=== PATIENT | female | born 1950 | race Caucasian/White ===

== ENCOUNTER 2017-08-12 11:02 | Emergency (ER) | payer MEDICARE ==
[~2017-08-12] VITALS: Ht 162.6 cm; Wt 132.4 kg
[~2017-08-12 11:02] MED LIST: ALBU90OI INH; ATEN100; CITRACEL; CLON.2 PO; Cinnamon500 MG PO; Citalopram HBr40 MG PO; DILT300 PO; DULERA 100 MCG/13 GM INH; FERR325 PO; FURO40 PO; HYOS.125 SL; IBUP800 PO; LISI20 PO; METF500 PO; METO10 PO; OXYACE5T PO; PAROXETINE 20 MG; POTCHL20ER PO; PRAV20 PO; PROM25 PO; Pepcid20 MG PO; RANI150; RANI150 PO; RXHYOS.125 PO; SITA100T2 PO; Simvastatin20 MG PO; TAMS.4ER PO; VALSARTAN 160 MG; Zofran Odt8 MG PO
[2017-08-12] MEDS ORDERED: Omeprazole20 M1 (11:47)
[2017-08-12] MEDS ORDERED: Vitamin C100 M1 PO (11:51)
[2017-08-12] MEDS ORDERED: CYAN500 PO (11:51)
[2017-08-12] MEDS ORDERED: CHOL10002 PO (11:51)
[2017-08-12 12:08] LABS: Alanine Aminotransfer (ALT/SGP 25 U/L (12-78); Albumin, Blood 3.3 g/dL (3.4-5.0); Albumin/Globulin Ratio 0.8 (0.8-1.8); Alk Phos 88 U/L (50-136); Anion Gap 11 mmol/L (6-16); Aspartate Aminotrans (AST/SGOT 15 U/L (12-37); BASOPHILS ABSOLUTE AUTO 0.04 K/mm3 (0.00-0.23); BASOPHILS PERCENT AUTO 1 % (0-2); Bilirubin, Total 0.3 mg/dL (0.1-1.0); Blood Urea Nitrogen 17 mg/dL (8-24); Bun/Creatinine Ratio 26.1 (12.0-20.0); CO2, Blood 23 mmol/L (21-32); Calcium, Blood 9.2 mg/dL (8.5-10.1); Chloride, Blood 106 mmol/L (98-108); Creatinine, Blood 0.65 mg/dL (0.40-1.00); EOSINOPHILS ABSOLUTE AUTO 0.24 K/mm3 (0.00-0.68); EOSINOPHILS PERCENT AUTO 3 % (0-6); Globulin, Blood 3.9 g/dL (2.2-4.0); Glomerular Filtration Rate >60 (60-); Glucose, Blood 211 mg/dL (70-99); Hematocrit 41.6 % (33.0-51.0); Hemoglobin 12.6 g/dL (11.5-16.0); IMMATURE GRAN PERCENT AUTO 1 % (0-1); LYMPHOCYTES ABSOLUTE AUTO 1.41 K/mm3 (0.84-5.20); LYMPHOCYTES PERCENT AUTO 19 % (21-46); MONOCYTES ABSOLUTE AUTO 0.45 K/mm3 (0.16-1.47); MONOCYTES PERCENT AUTO 6 % (4-13); Mean Corpuscular HGB 24.6 pg (26.0-34.0); Mean Corpuscular HGB Conc 30.3 g/dL (31.5-36.5); Mean Corpuscular Volume 81 fL (80-100); Mean Platelet Volume 9.6 fL (9.1-12.4); NEUTROPHILS ABSOLUTE AUTO 5.17 K/mm3 (1.96-9.15); NEUTROPHILS PERCENT AUTO 70 % (41-73); Platelet Count 248 K/mm3 (150-400); Potassium, Blood 4.1 mmol/L (3.5-5.5); RDW Coefficient Variation 14.6 % (11.7-14.2); RDW Standard Deviation 43.4 fL (35.1-46.3); Red Blood Cell Count 5.12 M/mm3 (3.80-5.20); Sodium, Blood 140 mmol/L (136-145); Total Protein, Blood 7.2 g/dL (6.4-8.2); White Blood Cell Count 7.41 K/mm3 (4.00-11.30)
[2017-08-12 12:10] LABS: Troponin I <0.015 ng/mL (0.000-0.040)
== END 2017-08-12 13:21 | disposition home or self-care (01) ==
LOC: ER 11:02
PROVIDERS: Emergency Medicine
DX: M79.602 Pain in left arm (principal); I10 Essential (primary) hypertension; E11.9 Type 2 diabetes mellitus without complications; Z79.899 Other long term (current) drug therapy; Z79.84 Long term (current) use of oral hypoglycemic drugs; Z90.49 Acquired absence of other specified parts of digestive tract; Z90.710 Acquired absence of both cervix and uterus
CPT/HCPCS: 36415; 71046; 80053; 83690; 83880; 84484; 85025; 93005; 93010; 99283

== ENCOUNTER → 2018-08-31 | Outpatient (CLI) | payer MEDICARE ==
[~2018-08-31] MED LIST changes: +CHOL10002 PO; +CYAN500 PO; +Omeprazole20 M1; +Vitamin C100 M1 PO
== END | disposition home or self-care (01) ==
LOC: LAB EV 14:37 → LAB SHORT 14:37
DX: R30.0 Dysuria (principal)
CPT/HCPCS: 87077; 87086; 87186

== ENCOUNTER 2018-10-26 12:54 | Inpatient (IN) | payer MEDICARE ==
[~2018-10-26] VITALS: Ht 162.6 cm; Wt 132.4 kg
[~2018-10-26 12:54] MED LIST changes: +CARDIZEM PO; -DILT300 PO; -Omeprazole20 M1; +Omeprazole20 M1 PO
[2018-10-26 14:04] LABS: BASOPHILS ABSOLUTE AUTO 0.05 K/mm3 (0.00-0.23); BASOPHILS PERCENT AUTO 1 % (0-2); EOSINOPHILS PERCENT AUTO 0 % (0-6); Hematocrit 43.3 % (33.0-51.0); Hemoglobin 13.1 g/dL (11.5-16.0); IMMATURE GRAN ABSOLUTE AUTO 0.13 K/mm3 (0.00-0.10); IMMATURE GRAN PERCENT AUTO 1 % (0-1); LYMPHOCYTES ABSOLUTE AUTO 0.63 K/mm3 (0.84-5.20); LYMPHOCYTES PERCENT AUTO 7 % (21-46); MONOCYTES ABSOLUTE AUTO 0.48 K/mm3 (0.16-1.47); MONOCYTES PERCENT AUTO 5 % (4-13); Mean Corpuscular HGB 25.9 pg (26.0-34.0); Mean Corpuscular HGB Conc 30.3 g/dL (31.5-36.5); Mean Corpuscular Volume 86 fL (80-100); Mean Platelet Volume 9.3 fL (9.1-12.4); NEUTROPHILS ABSOLUTE AUTO 8.43 K/mm3 (1.96-9.15); NEUTROPHILS PERCENT AUTO 87 % (41-73); Platelet Count 230 K/mm3 (150-400); RDW Coefficient Variation 14.4 % (11.7-14.2); RDW Standard Deviation 44.6 fL (35.1-46.3); Red Blood Cell Count 5.06 M/mm3 (3.80-5.20); White Blood Cell Count 9.72 K/mm3 (4.00-11.30)
[2018-10-26 14:23] LABS: Troponin I <0.015 ng/mL (0.000-0.040)
[2018-10-26 14:25] LABS: Alanine Aminotransfer (ALT/SGP 17 U/L (12-78); Albumin, Blood 3.4 g/dL (3.4-5.0); Albumin/Globulin Ratio 0.8 (0.8-1.8); Alk Phos 98 U/L (50-136); Anion Gap 8 mmol/L (6-16); Aspartate Aminotrans (AST/SGOT 12 U/L (12-37); Bilirubin, Total 0.5 mg/dL (0.1-1.0); Blood Urea Nitrogen 10 mg/dL (8-24); Bun/Creatinine Ratio 14.7 (12.0-20.0); CO2, Blood 25 mmol/L (21-32); Calcium, Blood 9.2 mg/dL (8.5-10.1); Chloride, Blood 102 mmol/L (98-108); Creatinine, Blood 0.68 mg/dL (0.40-1.00); Globulin, Blood 4.3 g/dL (2.2-4.0); Glomerular Filtration Rate >60 (60-); Glucose, Blood 176 mg/dL (70-99); Sodium, Blood 135 mmol/L (136-145); Total Protein, Blood 7.7 g/dL (6.4-8.2)
[2018-10-26 15:39] LABS: Base Excess Venous 0.6 mmol/L; Bicarbonate Venous 24.6 mmol/L (24.0-30.0); PCO2 Venous 43.3 mmHg (38-42); PO2 Venous 66.5 mmHg (38-42); pH Blood Venous 7.38 (7.34-7.37)
[2018-10-26 16:10] LABS: Influenza A Negative (NEGATIVE); Influenza B Negative (NEGATIVE)
[2018-10-26] MEDS ORDERED: Amaryl1 MG PO (16:40)
[2018-10-26] MEDS ORDERED: POTASSIUM CHLO20 MEQ PO (16:42)
[2018-10-26] MEDS ORDERED: DOXY100 PO (16:46)
[2018-10-26] MEDS ORDERED: GABA300 PO (16:47)
[2018-10-26] MEDS ORDERED: IRON150C PO (16:48)
--- NOTE | 2018-10-26 18:35 | NUR ---
PATIENT ARRIVED TO UNIT AT 1820. A&O X4, SBA. DENIES PAIN. C/O OF NAUSEA AND SOB W/ EXERTION. 02 @ 5L NC, SATS >90%. NS RUNNING @ 125. VSS. WILL CONTINUE TO MONITOR.
[2018-10-26 22:07] LABS: Adenovirus Not Detected (NOT DETECT); Bordetella pertussis Not Detected (NOT DETECT); Chlamydophila pneumoniae Not Detected (NOT DETECT); Coronavirus 229E Not Detected (NOT DETECT); Coronavirus HKU1 Not Detected (NOT DETECT); Coronavirus NL63 Not Detected (NOT DETECT); Coronavirus OC43 Not Detected (NOT DETECT); Human Metapneumovirus Not Detected (NOT DETECT); Human Rhinovirus/Enterovirus Not Detected (NOT DETECT); Influenza A Not Detected (NOT DETECT); Influenza A/2009-H1 Not Detected (NOT DETECT); Influenza A/H1 Not Detected (NOT DETECT); Influenza A/H3 Not Detected (NOT DETECT); Influenza B Not Detected (NOT DETECT); Mycoplasma pneumoniae Not Detected (NOT DETECT); Parainfluenza Virus 1 Not Detected (NOT DETECT); Parainfluenza Virus 2 Not Detected (NOT DETECT); Parainfluenza Virus 3 Not Detected (NOT DETECT); Parainfluenza Virus 4 Not Detected (NOT DETECT); Respiratory Syncytial Virus Detected (NOT DETECT)
[2018-10-27 05:03] LABS: BASOPHILS ABSOLUTE AUTO 0.03 K/mm3 (0.00-0.23); BASOPHILS PERCENT AUTO 0 % (0-2); EOSINOPHILS PERCENT AUTO 0 % (0-6); Hematocrit 40.3 % (33.0-51.0); Hemoglobin 11.8 g/dL (11.5-16.0); IMMATURE GRAN ABSOLUTE AUTO 0.13 K/mm3 (0.00-0.10); IMMATURE GRAN PERCENT AUTO 1 % (0-1); LYMPHOCYTES PERCENT AUTO 7 % (21-46); MONOCYTES ABSOLUTE AUTO 0.45 K/mm3 (0.16-1.47); MONOCYTES PERCENT AUTO 5 % (4-13); Mean Corpuscular HGB 25.7 pg (26.0-34.0); Mean Corpuscular HGB Conc 29.3 g/dL (31.5-36.5); Mean Corpuscular Volume 88 fL (80-100); Mean Platelet Volume 9.7 fL (9.1-12.4); NEUTROPHILS ABSOLUTE AUTO 8.71 K/mm3 (1.96-9.15); NEUTROPHILS PERCENT AUTO 87 % (41-73); Platelet Count 211 K/mm3 (150-400); RDW Coefficient Variation 14.2 % (11.7-14.2); RDW Standard Deviation 45.6 fL (35.1-46.3); Red Blood Cell Count 4.59 M/mm3 (3.80-5.20); White Blood Cell Count 10.02 K/mm3 (4.00-11.30)
[2018-10-27 05:23] LABS: Alanine Aminotransfer (ALT/SGP 13 U/L (12-78); Albumin, Blood 2.7 g/dL (3.4-5.0); Albumin/Globulin Ratio 0.7 (0.8-1.8); Alk Phos 81 U/L (50-136); Anion Gap 5 mmol/L (6-16); Aspartate Aminotrans (AST/SGOT 11 U/L (12-37); Bilirubin, Total 0.4 mg/dL (0.1-1.0); Blood Urea Nitrogen 14 mg/dL (8-24); Bun/Creatinine Ratio 24.4 (12.0-20.0); CO2, Blood 26 mmol/L (21-32); Calcium, Blood 8.8 mg/dL (8.5-10.1); Chloride, Blood 105 mmol/L (98-108); Creatinine, Blood 0.57 mg/dL (0.40-1.00); Glomerular Filtration Rate >60 (60-); Glucose, Blood 191 mg/dL (70-99); Phosphorus, Blood 2.9 mg/dL (2.5-4.9); Potassium, Blood 4.4 mmol/L (3.5-5.5); Sodium, Blood 136 mmol/L (136-145); Total Protein, Blood 6.7 g/dL (6.4-8.2)
--- NOTE | 2018-10-27 06:11 | NUR ---
SHIFT SUMMARY PT A/O. INDEPENDENT IN ROOM TO BA. 5L O2 NC. C/O PAIN IN HEADACHE X1 AND MEDICATED PER EMAR. OCCASIONAL CONGESTED SOUNDING COUGH. SHE WAS ABLE TO SLEEP T/O NOC. CALL LIGHT IN REACH.
--- NOTE | 2018-10-27 18:11 | NUR ---
LUNG SOUNDS CONTINUE TO BE COARSE AND WHEEZY T/O. REMAINS ON 5 L NC IS SOB WITH EXERTION. PT IS INDEPENDENT WITH ADLS IN ROOM. SHE IS HOPING TO GO HOME TOMORROW. NO ACUTE CHANGES NOTED THIS SHIFT, WILL CONTINUE TO MONITOR AND REPORT TO ONCOMING RN
--- NOTE | 2018-10-28 06:00 | NUR ---
SHIFT SUMMARY PT A/O. C/O GARCIA 01/30 AND MEDICATED PER EMAR. INDEPENDENT TO BA. 5L O2 NC. STATES SHE IS FEELING BETTER THAN YESTERDAY, EAGER TO GO HOME. SHE WAS ABLE TO SLEEP T/O NOC. CALL LIGHT IN REACH.
--- NOTE | 2018-10-28 07:05 | NUR ---
Assume care of patient Assumed care of patient with Astrid RN from night nurse Laura. Received in report that patient did not have coverage for blood glucose monitoring. Will contact Re: insulin coverage. Awaiting O2 evaluation from RT.
[2018-10-28] MEDS ORDERED: ACET325 PO (11:20)
[2018-10-28] MEDS ORDERED: CEFP200 PO (11:21)
[2018-10-28] MEDS ORDERED: DULERA 200 MCG/13 GM INH (11:22)
[2018-10-28] MEDS ORDERED: AZIT250 PO (11:22)
[2018-10-28] MEDS ORDERED: SACC250C PO (11:23)
[2018-10-28] MEDS ORDERED: PRED10 PO (11:28)
--- NOTE | 2018-10-28 12:00 | NUR ---
Patient discharged Patient was discharged to home. Discharge instructions, medication list, and follow-up appointments reviewed with patient. Meds were faxed to [facility] per patient request as preferred pharmacy was closed today. Opportunity for questions were given. Patient was escorted out via W/C by [employer] MACHINE OPERATOR.
== END 2018-10-28 13:29 | disposition home or self-care (01) | DRG 189 ==
LOC: ER 12:54 → MEDS 16:12 → ENPENDDIS 10-28 08:00 → MEDS 10-28 13:29
PROVIDERS: Emergency Medicine; Physician Assistant; ADMIT Hospitalist
DX: J96.01 Acute respiratory failure with hypoxia (principal); E11.9 Type 2 diabetes mellitus without complications; J20.8 Acute bronchitis due to other specified organisms; I10 Essential (primary) hypertension; E78.5 Hyperlipidemia, unspecified; K44.9 Diaphragmatic hernia without obstruction or gangrene; K76.0 Fatty (change of) liver, not elsewhere classified; E66.01 Morbid (severe) obesity due to excess calories; K21.9 Gastro-esophageal reflux disease without esophagitis; F32.9 Major depressive disorder, single episode, unspecified; F41.9 Anxiety disorder, unspecified
CPT/HCPCS: 36415; 71046; 71260; 80053; 82803; 82947; 83605; 83735; 83880; 84100; 84145; 84484; 85025; 87486; 87581; 87633; 87798; 87804; 93005; 93010; 94640; 94760; 94761; 96365-59; 96367-59; 96375-59; 97116; 97161; 97530; 99285-25; A9270-GY; J0456; J0696; J1650; J2405; J2920; J2930; J3475; J7030; J7050; J7512; Q9967

== ENCOUNTER → 2018-11-09 | Outpatient (CLI) | payer MEDICARE ==
[~2018-11-09] MED LIST changes: +ACET325 PO; +AZIT250 PO; +Amaryl1 MG PO; +CEFP200 PO; +DOXY100 PO; +DULERA 200 MCG/13 GM INH; +GABA300 PO; +IRON150C PO; +POTASSIUM CHLO20 MEQ PO; +PRED10 PO; +SACC250C PO
[2018-11-09 14:03] LABS: BASOPHILS ABSOLUTE AUTO 0.05 K/mm3 (0.00-0.23); BASOPHILS PERCENT AUTO 1 % (0-2); EOSINOPHILS ABSOLUTE AUTO 0.21 K/mm3 (0.00-0.68); EOSINOPHILS PERCENT AUTO 2 % (0-6); Hematocrit 41.3 % (33.0-51.0); Hemoglobin 12.8 g/dL (11.5-16.0); IMMATURE GRAN ABSOLUTE AUTO 0.11 K/mm3 (0.00-0.10); IMMATURE GRAN PERCENT AUTO 1 % (0-1); LYMPHOCYTES ABSOLUTE AUTO 1.58 K/mm3 (0.84-5.20); LYMPHOCYTES PERCENT AUTO 15 % (21-46); MONOCYTES ABSOLUTE AUTO 0.72 K/mm3 (0.16-1.47); MONOCYTES PERCENT AUTO 7 % (4-13); Mean Corpuscular HGB 26.2 pg (26.0-34.0); Mean Platelet Volume 9.8 fL (9.1-12.4); NEUTROPHILS ABSOLUTE AUTO 7.73 K/mm3 (1.96-9.15); NEUTROPHILS PERCENT AUTO 74 % (41-73); Platelet Count 265 K/mm3 (150-400); RDW Coefficient Variation 14.9 % (11.7-14.2); RDW Standard Deviation 45.4 fL (35.1-46.3); Red Blood Cell Count 4.89 M/mm3 (3.80-5.20)
[2018-11-09 14:06] LABS: Mean Corpuscular Volume 85 fL (80-100)
[2018-11-09 14:12] LABS: Alanine Aminotransfer (ALT/SGP 22 U/L (12-78); Albumin/Globulin Ratio 0.8 (0.8-1.8); Alk Phos 84 U/L (40-126); Anion Gap 9 mmol/L (6-16); Aspartate Aminotrans (AST/SGOT 13 U/L (12-37); Bilirubin, Total 0.3 mg/dL (0.1-1.0); Blood Urea Nitrogen 17 mg/dL (8-24); Bun/Creatinine Ratio 21.3 (12.0-20.0); CO2, Blood 26 mmol/L (21-32); Calcium, Blood 8.9 mg/dL (8.5-10.1); Chloride, Blood 102 mmol/L (98-108); Glomerular Filtration Rate >60 (60-); Glucose, Blood 121 mg/dL (70-99); Potassium, Blood 4.4 mmol/L (3.5-5.5); Sodium, Blood 137 mmol/L (136-145)
== END | disposition home or self-care (01) ==
LOC: LAB EV 13:54 → LAB SHORT 13:54
PROVIDERS: Physician Assistant
DX: R53.83 Other fatigue (principal); K14.0 Glossitis; R82.79 Other abnormal findings on microbiological examination of urine
CPT/HCPCS: 80053; 82607; 82746; 83880; 85025; 87086

== ENCOUNTER 2019-08-17 23:42 | Emergency (ER) | payer MEDICARE ==
[~2019-08-17] VITALS: Ht 162.6 cm; Wt 133.4 kg
[2019-08-18 00:13] LABS: BASOPHILS ABSOLUTE AUTO 0.06 K/mm3 (0.00-0.23); BASOPHILS PERCENT AUTO 1 % (0-2); EOSINOPHILS ABSOLUTE AUTO 0.26 K/mm3 (0.00-0.68); EOSINOPHILS PERCENT AUTO 3 % (0-6); Hematocrit 40.4 % (33.0-51.0); Hemoglobin 12.2 g/dL (11.5-16.0); IMMATURE GRAN ABSOLUTE AUTO 0.08 K/mm3 (0.00-0.10); IMMATURE GRAN PERCENT AUTO 1 % (0-1); LYMPHOCYTES ABSOLUTE AUTO 1.75 K/mm3 (0.84-5.20); LYMPHOCYTES PERCENT AUTO 18 % (21-46); MONOCYTES ABSOLUTE AUTO 0.66 K/mm3 (0.16-1.47); MONOCYTES PERCENT AUTO 7 % (4-13); Mean Corpuscular HGB 25.7 pg (26.0-34.0); Mean Corpuscular HGB Conc 30.2 g/dL (31.5-36.5); Mean Corpuscular Volume 85 fL (80-100); Mean Platelet Volume 9.8 fL (9.1-12.4); NEUTROPHILS PERCENT AUTO 71 % (41-73); Platelet Count 276 K/mm3 (150-400); RDW Coefficient Variation 14.1 % (11.7-14.2); RDW Standard Deviation 43.4 fL (35.1-46.3); Red Blood Cell Count 4.75 M/mm3 (3.80-5.20); White Blood Cell Count 9.51 K/mm3 (4.00-11.30)
[2019-08-18 00:26] LABS: Alanine Aminotransfer (ALT/SGP 18 U/L (12-78); Albumin, Blood 3.4 g/dL (3.4-5.0); Albumin/Globulin Ratio 0.9 (0.8-1.8); Alk Phos 85 U/L (50-136); Anion Gap 6 mmol/L (6-16); Aspartate Aminotrans (AST/SGOT 20 U/L (12-37); Bilirubin, Total 0.3 mg/dL (0.1-1.0); Blood Urea Nitrogen 26 mg/dL (8-24); Bun/Creatinine Ratio 29.7 (12.0-20.0); CO2, Blood 25 mmol/L (21-32); Calcium, Blood 9.6 mg/dL (8.5-10.1); Chloride, Blood 107 mmol/L (98-108); Creatinine, Blood 0.88 mg/dL (0.40-1.00); Globulin, Blood 3.9 g/dL (2.2-4.0); Glomerular Filtration Rate >60 (60-); Glucose, Blood 124 mg/dL (70-99); Potassium, Blood 4.7 mmol/L (3.5-5.5); Sodium, Blood 138 mmol/L (136-145); Total Protein, Blood 7.3 g/dL (6.4-8.2)
== END 2019-08-18 03:01 | disposition home or self-care (01) ==
LOC: ER 23:42
PROVIDERS: Emergency Medicine
DX: K92.2 Gastrointestinal hemorrhage, unspecified (principal); E11.9 Type 2 diabetes mellitus without complications; E78.5 Hyperlipidemia, unspecified; D50.9 Iron deficiency anemia, unspecified; F41.9 Anxiety disorder, unspecified; F32.9 Major depressive disorder, single episode, unspecified; K21.0 Gastro-esophageal reflux disease with esophagitis; E66.01 Morbid (severe) obesity due to excess calories; Z68.43 Body mass index [BMI] 50.0-59.9, adult; Z79.899 Other long term (current) drug therapy; Z79.84 Long term (current) use of oral hypoglycemic drugs; Z79.51 Long term (current) use of inhaled steroids
CPT/HCPCS: 36415; 80053; 82272; 85025; 96374; 99283; C9113

== ENCOUNTER 2019-09-06 07:49 | Day surgery (SDC) | payer MEDICARE ==
[~2019-09-06] VITALS: Ht 162.6 cm; Wt 131.9 kg
--- NOTE | 2019-09-06 09:15 | NUR ---
History, Chart, Medications and Allergies reviewed before start of procedure. PT INTO SDS VIA W/C. Patient confirms NPO status and agrees with scheduled surgery.
--- NOTE | 2019-09-06 09:42 | NUR ---
09/06/19 0942 Jorge Cortez Bite Block PlacedSee Anesthesia recordMONITOR INTACT WITH CONTINUOUS PULSE OXIMETRY AND INTERMITTENT BP.O2 VIA N/C INTACT THROUGHOUT SEDATION/PROCEDURE.
--- NOTE | 2019-09-06 10:18 | NUR ---
Patient up to Ambulate independently. Gait steady. Discharge instructions reviewed with patient. Patient verbalizes understanding. Copy given to patient to take home. Patient States Post-Procedure ride home has been arranged. Discharged via wheelchair to private car for ride home.
== END 2019-09-06 10:19 | disposition home or self-care (01) ==
LOC: ORSCMMR 07:49 → ORD 09:30 → ORSCMMR 09:30
PROVIDERS: Internal Medicine Gastroenterology
PROC: 0DB68ZX Excision of Stomach, Via Natural or Artificial Opening Endoscopic, Diagnostic (ICD-10-PCS; principal; 2019-09-06 09:30)
DX: K92.1 Melena (principal); K44.9 Diaphragmatic hernia without obstruction or gangrene; K29.80 Duodenitis without bleeding; K20.9 Esophagitis, unspecified; E11.9 Type 2 diabetes mellitus without complications; I10 Essential (primary) hypertension; E78.5 Hyperlipidemia, unspecified; K21.9 Gastro-esophageal reflux disease without esophagitis; E66.01 Morbid (severe) obesity due to excess calories; Z68.42 Body mass index [BMI] 45.0-49.9, adult; Z79.84 Long term (current) use of oral hypoglycemic drugs; Z79.899 Other long term (current) drug therapy
CPT/HCPCS: 82947; 88305; 88342; J2704; J7120

== ENCOUNTER 2019-11-14 23:38 | Emergency (ER) | payer MEDICARE ==
[~2019-11-14] VITALS: Ht 162.6 cm; Wt 130.2 kg
== END 2019-11-15 01:54 | disposition home or self-care (01) ==
LOC: ER 23:38
DX: M70.61 Trochanteric bursitis, right hip (principal); I10 Essential (primary) hypertension; E11.9 Type 2 diabetes mellitus without complications
CPT/HCPCS: 99284; J1030

== ENCOUNTER → 2020-05-14 | Outpatient (CLI) | payer MEDICARE | LOC: LAB SHORT 11:15 → PLD 11:15 | DX: D48.5 Neoplasm of uncertain behavior of skin (principal); L57.0 Actinic keratosis | CPT/HCPCS: 88305 ==

== ENCOUNTER 2020-08-10 02:21 | Emergency (ER) | payer MEDICARE ==
[~2020-08-10] VITALS: Ht 162.6 cm; Wt 129.3 kg
[2020-08-10] MEDS ORDERED: Colace250 MG PO (07:02)
[2020-08-10] MEDS ORDERED: Keflex500 MG PO (07:02)
[2020-08-10] MEDS ORDERED: HYDR1TAB94 PO (07:02)
== END 2020-08-10 07:32 | disposition home or self-care (01) ==
LOC: ER 02:21
DX: S61.401A Unspecified open wound of right hand, initial encounter (principal); I10 Essential (primary) hypertension; E11.9 Type 2 diabetes mellitus without complications; Z79.84 Long term (current) use of oral hypoglycemic drugs; Z79.899 Other long term (current) drug therapy; W01.198A Fall on same level from slipping, tripping and stumbling with subsequent striking against other object, initial encounter
CPT/HCPCS: 12005; 73130; 90471; 96365-59; 96375-59; 99283-25; J0690; J1170; J2270

== ENCOUNTER 2022-02-24 10:27 | Observation (INO) | payer MEDICARE ==
[~2022-02-24] VITALS: Ht 162.6 cm; Wt 133.8 kg
[~2022-02-24 10:27] MED LIST changes: +Colace250 MG PO; +HYDR1TAB94 PO; +Keflex500 MG PO
[2022-02-24 10:48] LABS: BASOPHILS ABSOLUTE AUTO 0.06 K/mm3 (0.00-0.23); BASOPHILS PERCENT AUTO 1 % (0-2); EOSINOPHILS ABSOLUTE AUTO 0.22 K/mm3 (0.00-0.68); EOSINOPHILS PERCENT AUTO 3 % (0-6); Hematocrit 43.6 % (33.0-51.0); Hemoglobin 13.5 g/dL (11.5-16.0); IMMATURE GRAN ABSOLUTE AUTO 0.08 K/mm3 (0.00-0.10); IMMATURE GRAN PERCENT AUTO 1 % (0-1); LYMPHOCYTES ABSOLUTE AUTO 1.37 K/mm3 (0.84-5.20); LYMPHOCYTES PERCENT AUTO 15 % (21-46); MONOCYTES ABSOLUTE AUTO 0.51 K/mm3 (0.16-1.47); MONOCYTES PERCENT AUTO 6 % (4-13); Mean Corpuscular HGB 26.5 pg (26.0-34.0); Mean Corpuscular Volume 86 fL (80-100); Mean Platelet Volume 9.9 fL (9.1-12.4); NEUTROPHILS ABSOLUTE AUTO 6.71 K/mm3 (1.96-9.15); NEUTROPHILS PERCENT AUTO 75 % (41-73); Platelet Count 231 K/mm3 (150-400); RDW Coefficient Variation 14.1 % (11.7-14.2); RDW Standard Deviation 44.2 fL (35.1-46.3); Red Blood Cell Count 5.09 M/mm3 (3.80-5.20); White Blood Cell Count 8.95 K/mm3 (4.00-11.30)
[2022-02-24 11:06] LABS: Albumin, Blood 3.4 g/dL (3.4-5.0); Albumin/Globulin Ratio 0.9 (0.8-1.8); Bilirubin, Total 0.4 mg/dL (0.1-1.0); Bun/Creatinine Ratio 26.6 (12.0-20.0); Calcium, Blood 9.4 mg/dL (8.5-10.1); Creatinine, Blood 0.79 mg/dL (0.40-1.00); Globulin, Blood 3.9 g/dL (2.2-4.0); Potassium, Blood 4.5 mmol/L (3.5-5.5); Total Protein, Blood 7.3 g/dL (6.4-8.2)
[2022-02-24 11:30] LABS: Influenza A, PCR NEGATIVE (NEGATIVE); Influenza B, PCR NEGATIVE (NEGATIVE); Resp Syncytial Virus, PCR NEGATIVE (NEGATIVE); SARS-Cov-2 (COVID-19) PCR, MMC NEGATIVE (NEGATIVE)
[2022-02-24 13:45] LABS: Base Excess Venous 5.2 mmol/L; Bicarbonate Venous 27.3 mmol/L (24.0-30.0); PCO2 Venous 53.8 mmHg (38-42); pH Blood Venous 7.36 (7.34-7.37)
--- NOTE | 2022-02-24 17:06 | NUR ---
Echocardiogram completed.
--- NOTE | 2022-02-24 18:35 | NUR ---
Patient admitted for SOB, 2L/oxygen to maintain sats. Tele ordered, NSR 67HR. CBGs ordered AC, no SSI administred. Patient independent in room, SOB with activity. ECHO completed at [facility], results pending. No c/o pain/discomfort. Vitals stable, will continue to montior and titrate patient to RA.
[2022-02-25 05:49] LABS: BASOPHILS ABSOLUTE AUTO 0.03 K/mm3 (0.00-0.23); BASOPHILS PERCENT AUTO 0 % (0-2); EOSINOPHILS ABSOLUTE AUTO 0.19 K/mm3 (0.00-0.68); EOSINOPHILS PERCENT AUTO 3 % (0-6); Hematocrit 43.2 % (33.0-51.0); Hemoglobin 13.4 g/dL (11.5-16.0); IMMATURE GRAN ABSOLUTE AUTO 0.06 K/mm3 (0.00-0.10); IMMATURE GRAN PERCENT AUTO 1 % (0-1); LYMPHOCYTES ABSOLUTE AUTO 1.22 K/mm3 (0.84-5.20); LYMPHOCYTES PERCENT AUTO 17 % (21-46); MONOCYTES ABSOLUTE AUTO 0.45 K/mm3 (0.16-1.47); MONOCYTES PERCENT AUTO 6 % (4-13); Mean Corpuscular HGB 26.3 pg (26.0-34.0); Mean Corpuscular Volume 85 fL (80-100); Mean Platelet Volume 9.7 fL (9.1-12.4); NEUTROPHILS ABSOLUTE AUTO 5.13 K/mm3 (1.96-9.15); NEUTROPHILS PERCENT AUTO 73 % (41-73); Platelet Count 188 K/mm3 (150-400); RDW Standard Deviation 43.1 fL (35.1-46.3); Red Blood Cell Count 5.09 M/mm3 (3.80-5.20); White Blood Cell Count 7.08 K/mm3 (4.00-11.30)
[2022-02-25 06:20] LABS: Bun/Creatinine Ratio 22.5 (12.0-20.0); Creatinine, Blood 0.67 mg/dL (0.40-1.00); Potassium, Blood 4.2 mmol/L (3.5-5.5)
--- NOTE | 2022-02-25 06:29 | NUR ---
SHIFT SUMMARY: PATIENT REPORTS A HEADACHE AND REQUESTED TYLENOL. MED WAS GIVEN WITH GOOD EFFECT. PATIENT IS UP TO THE BATHROOM INDEPENDANTLY WITH STEADY GAIT. SOB WITH ACTIVITY, EXTENTION WAS ADDED TO 02. PATIENT IS WEARING IT CONTINUOSLY THROUGH THE NIGHT.
--- NOTE | 2022-02-25 16:34 | NUR ---
Patient doing well weaned down to 1L oxygen, home O2 evaluation ordered. Vital signs stable, CBGs WNL. MD placed discharge orders. Discharge teaching provided on home oxygen, patient verbalized understnaing. Patient left unit at 1230.
== END 2022-02-25 13:41 | disposition home or self-care (01) ==
LOC: ER 10:27 → MEDS 10:28
PROVIDERS: Emergency Medicine; ADMIT Family Medicine
DX: J96.01 Acute respiratory failure with hypoxia (principal); E11.9 Type 2 diabetes mellitus without complications; I16.0 Hypertensive urgency; E66.01 Morbid (severe) obesity due to excess calories; G47.33 Obstructive sleep apnea (adult) (pediatric); K21.9 Gastro-esophageal reflux disease without esophagitis; F41.8 Other specified anxiety disorders; E78.5 Hyperlipidemia, unspecified; G89.29 Other chronic pain; M54.9 Dorsalgia, unspecified; I11.9 Hypertensive heart disease without heart failure; Z79.84 Long term (current) use of oral hypoglycemic drugs; Z79.899 Other long term (current) drug therapy; Z79.4 Long term (current) use of insulin; Z20.822 Contact with and (suspected) exposure to COVID-19; Z68.43 Body mass index [BMI] 50.0-59.9, adult
CPT/HCPCS: 0241U; 36415; 71045; 80048; 80053; 82803; 82947; 83880; 84484; 85025; 93005; 93010; 93306; 94761; 99285-25; A9270; J1650; J1815

== ENCOUNTER 2022-07-19 06:16 | Day surgery (SDC) | payer MEDICARE ==
[~2022-07-19] VITALS: Ht 162.6 cm; Wt 137.0 kg
[2022-07-19] MEDS ORDERED: DILT30 PO (06:37)
[2022-07-19] MEDS ORDERED: CITALOPRAM HBR10 MG PO (06:37)
[2022-07-19] MEDS ORDERED: CATAPRES0.1 MG PO (06:38)
[2022-07-19] MEDS ORDERED: CATAPRES0.3 MG PO (06:39)
[2022-07-19] MEDS ORDERED: DILT180 PO (06:40)
--- NOTE | 2022-07-19 06:49 | NUR ---
07/19/22 0649 Mark Jorge CALL LIGHT WITHIN REACH. VERONICA IN RIGHT EYE AT 0640 AND ESHA AT 0647
--- NOTE | 2022-07-19 08:15 | NUR ---
07/19/22 0815 JOSE ARMANDO CERRATO PT SATS 88-89% RA- O2 VIA NASAL CANUAL 3L SAT S 91-96% WHEN REMINDED TO BREATHE IN THROUGH NOSE AND OUT THROUGH MOUTH.
== END 2022-07-19 08:28 | disposition home or self-care (01) ==
LOC: ORSCSDS 06:16
PROVIDERS: Ophthalmology
PROC: 08DJ3ZZ Extraction of Right Lens, Percutaneous Approach (ICD-10-PCS; principal; 2022-07-19 07:30)
DX: H25.11 Age-related nuclear cataract, right eye (principal); I10 Essential (primary) hypertension; E11.9 Type 2 diabetes mellitus without complications; K21.9 Gastro-esophageal reflux disease without esophagitis; R06.02 Shortness of breath; E66.9 Obesity, unspecified; Z68.31 Body mass index [BMI] 31.0-31.9, adult; Z79.899 Other long term (current) drug therapy
CPT/HCPCS: 82947; A9270; J2001; J2250; J3010; J7040; V2632

== ENCOUNTER → 2023-05-31 | Outpatient (CLI) | payer MEDICARE ==
[~2023-05-31] MED LIST changes: +CATAPRES0.1 MG PO; +CATAPRES0.3 MG PO; +CITALOPRAM HBR10 MG PO; +DILT180 PO; +DILT30 PO
== END ==
LOC: PLD 14:40 → LAB 14:40 → LAB SHORT 14:40
DX: D48.5 Neoplasm of uncertain behavior of skin (principal)
CPT/HCPCS: 88305

== ENCOUNTER 2023-06-13 16:08 | Inpatient (IN) | payer MEDICARE ==
[~2023-06-13] VITALS: Ht 162.6 cm; Wt 133.3 kg
[~2023-06-13 16:08] MED LIST changes: +CATAPRES0.2 M1 PO; -CATAPRES0.3 MG PO; +CELEXA40 M1 PO; -CITALOPRAM HBR10 MG PO; -DILT180 PO; +GLUCOPHAGE1000 M1 PO; -LISI20 PO; -METF500 PO; +OMEP20ER PO; -Omeprazole20 M1 PO; -POTASSIUM CHLO20 MEQ PO; +ZESTRIL40 M1 PO
[2023-06-13 16:59] LABS: BASOPHILS ABSOLUTE AUTO 0.07 K/mm3 (0.00-0.23); BASOPHILS PERCENT AUTO 1 % (0-2); EOSINOPHILS ABSOLUTE AUTO 0.16 K/mm3 (0.00-0.68); EOSINOPHILS PERCENT AUTO 2 % (0-6); Hematocrit 30.1 % (33.0-51.0); Hemoglobin 8.8 g/dL (11.5-16.0); IMMATURE GRAN PERCENT AUTO 1 % (0-1); LYMPHOCYTES ABSOLUTE AUTO 1.67 K/mm3 (0.84-5.20); LYMPHOCYTES PERCENT AUTO 15 % (21-46); MONOCYTES ABSOLUTE AUTO 0.81 K/mm3 (0.16-1.47); MONOCYTES PERCENT AUTO 7 % (4-13); Mean Corpuscular HGB 22.1 pg (26.0-34.0); Mean Corpuscular HGB Conc 29.2 g/dL (31.5-36.5); Mean Corpuscular Volume 76 fL (80-100); Mean Platelet Volume 9.5 fL (9.1-12.4); NEUTROPHILS ABSOLUTE AUTO 8.19 K/mm3 (1.96-9.15); NEUTROPHILS PERCENT AUTO 74 % (41-73); Platelet Count 288 K/mm3 (150-400); RDW Coefficient Variation 16.8 % (11.7-14.2); RDW Standard Deviation 45.4 fL (35.1-46.3); Red Blood Cell Count 3.98 M/mm3 (3.80-5.20)
[2023-06-13 17:14] LABS: Albumin/Globulin Ratio 0.8 (0.8-1.8); Bilirubin, Total 0.1 mg/dL (0.1-1.0); Bun/Creatinine Ratio 21.9 (12.0-20.0); Calcium, Blood 8.8 mg/dL (8.5-10.1); Creatinine, Blood 1.05 mg/dL (0.40-1.00); Globulin, Blood 3.7 g/dL (2.2-4.0); Potassium, Blood 4.2 mmol/L (3.5-5.5); Total Protein, Blood 6.7 g/dL (6.4-8.2)
[2023-06-13 19:23] LABS: International Normalized Ratio 0.95
[2023-06-13 20:35] VITALS: BP 173/62
[2023-06-13 21:21] LABS: Hematocrit 31.5 % (33.0-51.0)
--- NOTE | 2023-06-13 21:43 | NUR ---
ADMIT NOTE HANDOFF RECEIVED FROM MONITORING TECH JACOB. PT ARRIVED TO FLOOR VIA TRENA. PT ORIENTED TO UNIT. CALL BUTTON WITHIN REACH. TELEMETRY IN PLACE. IV FLUIDS INFUSING ORDERED. 3 LPM O2 VIA NC. PERSONAL POSSESSIONS WITH PATIENT
[2023-06-13 22:27] VITALS: BP 162/79
[2023-06-14] VITALS (9 sets, daily range): BP systolic 126–172; BP diastolic 61–94
--- NOTE | 2023-06-14 04:37 | NUR ---
SHIFT SUMMARY ADMITTED FOR GI BLEED. FULL CODE. COLONOSCOPY PLANNED FOR TODAY. PLAN IS TO PUT IN A DOBHOFF AND ADMINISTER GOLYTELY THIS MORNING. IV FLUIDS INFUSING. TELEMETRY: NSR @ 77 BPM. SHE IS ON 3 LPM O2 HERE, RA @ BASELINE. HOWEVER, SHE DID INFORM ME THAT SHE USED HER LATE 'S O2 FOR A TIME AFTER HE . SHE MENTIONS SHE MAY POSSIBLY HAVE COPD. SHE DOES HAVE A HX OF HEMORRHOIDS. GI CONSULT HAS SEEN THE PATIENT. SHE IS A&O X4. INDEPENDENT TO THE BATHROOM. SHE IS SOB WITH EXERTION.
[2023-06-14 05:08] LABS: Hematocrit 28.5 % (33.0-51.0); Hemoglobin 8.1 g/dL (11.5-16.0); Mean Corpuscular HGB 21.8 pg (26.0-34.0); Mean Corpuscular HGB Conc 28.4 g/dL (31.5-36.5); Mean Corpuscular Volume 77 fL (80-100); Mean Platelet Volume 9.5 fL (9.1-12.4); Platelet Count 267 K/mm3 (150-400); RDW Coefficient Variation 16.7 % (11.7-14.2); RDW Standard Deviation 46.7 fL (35.1-46.3); Red Blood Cell Count 3.71 M/mm3 (3.80-5.20); White Blood Cell Count 10.76 K/mm3 (4.00-11.30)
[2023-06-14 05:28] LABS: Bun/Creatinine Ratio 27.6 (12.0-20.0); Calcium, Blood 8.8 mg/dL (8.5-10.1); Creatinine, Blood 0.87 mg/dL (0.40-1.00); Potassium, Blood 3.6 mmol/L (3.5-5.5)
--- NOTE | 2023-06-14 06:11 | NUR ---
PT REFUSED TO TOLERATE DOBHOFF PT INSISTED THAT I REMOVE THE SUCCESSFULLY ADMINISTERED DOBHOFF IMMEDIATELY. NOW SHE STATES SHE WILL DRINK THE GOLYTELY SOLUTION. WE WILL ADMINISTER IT PO NOW.
--- NOTE | 2023-06-14 11:39 | NUR ---
Upon receiving a referral for spiritual care, I visited the patient. She tells me about the events that led to her admission to the hospital and the worries she has about the porcedure that she will have today. She shares the of her spouse and the solid support she has from her siblings and step sons. She also talks about her strong [employer] flory and so prayer for peace and healing provided was vocalized as meaningful. I will continue to remain available .
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
[2023-06-14 14:13] LABS: Hematocrit 23.4 % (33.0-51.0); Hemoglobin 6.7 g/dL (11.5-16.0)
--- NOTE | 2023-06-14 16:02 | NUR ---
06/14/23 [address] RAMIRES; SEE ANESTHESIA RECORDS.
--- NOTE | 2023-06-14 16:19 | NUR ---
CALL/SHIFT SUMMARY MS HINKLE IS ON HER WAY BACK FROM COLONOSCOPY. PROCEDURE ABORTED. PT TO GET MORE GOLITELY AND REPEAT COLONOSCOPY TOMORROW PER REPORT. DR RUDOLPH CALLED AND NOTIFIED OF UPDATE AND THAT HGB 6.7 PRIOR TO COLONOSCOPY. TELEPHONE ORDER FOR ONE UNIT PRBC READ BACK AND ORDER ENTERED INTO [facility] [facility]. PT TOOK WHOLE OF HER GOLYTELY PREP THIS MORNING AND WAS PUTTING OUT RASPBERRY JAM CONSISTANCY OUTPUT FOLLOWED BY CLEAR BLOODY LIQUID OUTPUT. ON TELE, SR, NO CALLS FROM DYE TUB TENDER. BED LOW, CALL LIGHT IN REACH.
--- NOTE | 2023-06-14 20:16 | NUR ---
RN UPDATE NOTE 1U PRBC TRANSFUSION STARTED AT 1815HRS. LUNGS SOUNDS CLEAR WITH Q15 MINUTE VITAL SIGNS X4. PIV STARTED TO LEAK 30 MINUTES AFTER BLOOD TRANSFUSION STARTED AND PT DESCRIBED TENDERNESS AT SITE. ATTEMPTED PIV PLACEMENT RIGHT HAND UNSUCCESSFUL AND VASQUEZ CHARGE NURSE PLACING PIV WITH ULTRASOUND. PT IS TOLERATING BOWEL PREP WELL. UP TO BEDSIDE COMMODE PASSING BLOODY LIQUID, NO SOLID STOOL PASSED UP TO TIME OF REPORT TO NIGHT RN.
[2023-06-14 23:55] LABS: Hematocrit 24.1 % (33.0-51.0); Hemoglobin 7.1 g/dL (11.5-16.0)
[2023-06-15] VITALS (11 sets, daily range): BP systolic 113–190; BP diastolic 36–88
[2023-06-15 05:49] LABS: BASOPHILS ABSOLUTE AUTO 0.04 K/mm3 (0.00-0.23); BASOPHILS PERCENT AUTO 1 % (0-2); EOSINOPHILS ABSOLUTE AUTO 0.14 K/mm3 (0.00-0.68); EOSINOPHILS PERCENT AUTO 2 % (0-6); Hematocrit 23.6 % (33.0-51.0); IMMATURE GRAN ABSOLUTE AUTO 0.06 K/mm3 (0.00-0.10); IMMATURE GRAN PERCENT AUTO 1 % (0-1); LYMPHOCYTES PERCENT AUTO 22 % (21-46); MONOCYTES ABSOLUTE AUTO 0.45 K/mm3 (0.16-1.47); MONOCYTES PERCENT AUTO 8 % (4-13); Mean Corpuscular HGB Conc 29.7 g/dL (31.5-36.5); Mean Corpuscular Volume 77 fL (80-100); Mean Platelet Volume 9.4 fL (9.1-12.4); NEUTROPHILS ABSOLUTE AUTO 4.04 K/mm3 (1.96-9.15); NEUTROPHILS PERCENT AUTO 67 % (41-73); Platelet Count 197 K/mm3 (150-400); RDW Coefficient Variation 17.2 % (11.7-14.2); RDW Standard Deviation 48.2 fL (35.1-46.3); Red Blood Cell Count 3.05 M/mm3 (3.80-5.20); White Blood Cell Count 6.03 K/mm3 (4.00-11.30)
[2023-06-15 06:16] LABS: Bun/Creatinine Ratio 16.9 (12.0-20.0); Calcium, Blood 8.3 mg/dL (8.5-10.1); Creatinine, Blood 0.71 mg/dL (0.40-1.00); Potassium, Blood 3.6 mmol/L (3.5-5.5)
--- NOTE | 2023-06-15 06:22 | NUR ---
SHIFT SUMMARY PT IS HERE AT THE HOSPITAL WITH ACUTE RESPIRATORY FAILURE AND A GIB W/BRIGHT RED BLOOD PER HER RECTUM. PT WAS RECEIVING PRBC'S YESTERDAY AT SHIFT CHANGE. HER RESULTING HGB WAS 7.1 AND HER LABS THIS AM SHOWED A HGB OF 7.0. PT HAS BEEN DRINKING HER BOWEL PREP MEDICATION THROUGHOUT THE SHIFT, USING THE BEDSIDE COMMODE WHEN SHE NEEDS TO. TELEMETRY DESK REPORTS THE PT HAS BEEN RUNNING SINUS RHYTHM WITH SOME PAC'S. BED IS IN LOWEST POSITION, CALL LIGHT IS WITHIN REACH.
--- NOTE | 2023-06-15 11:20 | NUR ---
INTO [facility] VIA [facility]. History, Chart, Medications and Allergies reviewed before start of procedure.Patient confirms NPO status and agrees with scheduled surgery. Patient states colon prep results clear.Lungs diminished in the bases. No noted sob at rest. Sats >90% on 4 liters nasal canula. New PIV started-cbg 184.
--- NOTE | 2023-06-15 12:09 | NUR ---
06/15/23 1209 Jessica Jorge History, Chart, Medications and Allergies reviewed before start of procedure.MONITOR INTACT WITH CONTINUOUS PULSE OXIMETRY, CONTINUOUS END TITAL CO2, AND INTERMITTENT BLOOD PRESSURE.3-LEAD EKG REVIEWED WITH PHYSICIAN PRIOR TO START OF PROCEDURE.O2 VIA N/C INTACT THROUGHOUT SEDATION/PROCEDURE.DR. CAIN PROVIDING MAC.
--- NOTE | 2023-06-15 17:11 | NUR ---
SHIFT SUMMARY; PATIENT RECEIVED COLONOSCOPY TODAY AT NOON. RETURNED TO ROOM APPROX 1345. BLOOD TRANSFUSION WAS INFUSING BEFORE PATIENT LEFT AND CONTINUED DURING COLONOSCOPY. FINISHED PER MIS SPECIALIST AT 1245. VITAL SIGNS DOCUMENTED IN SURGICAL CHARTING. SPOKE WITH PATIENT PRIOR TO HER RETURNING TO [facility] FLOOR. DIVERTICULI INFECTED AND DIVERTICULITIS EVIDENT AND THOUGHT TO BE MAIN CAUSE OF BLEEDING. PATIENT IS NOW A ADA DIET. HER BLOOD PRESSURE HTN AT TIMES BUT RECOVERS WITHOUT PHARMACOLOGIC INTERVENTIONS. PATIENT SAYS SHE HOPES TO DISCHARGE IN THE AM. CHEM BG'S ARE NOW AC AND HS SHE IS EATING. NO COVERAGE NEEDED AT DINNER MEAL FOR CHEM BG OF 148.
[2023-06-15 21:39] LABS: Hematocrit 26.7 % (33.0-51.0)
[2023-06-16 05:06] VITALS: BP 142/69
[2023-06-16 05:22] LABS: BASOPHILS ABSOLUTE AUTO 0.04 K/mm3 (0.00-0.23); BASOPHILS PERCENT AUTO 1 % (0-2); EOSINOPHILS PERCENT AUTO 4 % (0-6); Hematocrit 26.9 % (33.0-51.0); Hemoglobin 7.9 g/dL (11.5-16.0); IMMATURE GRAN ABSOLUTE AUTO 0.06 K/mm3 (0.00-0.10); IMMATURE GRAN PERCENT AUTO 1 % (0-1); LYMPHOCYTES ABSOLUTE AUTO 1.32 K/mm3 (0.84-5.20); LYMPHOCYTES PERCENT AUTO 24 % (21-46); MONOCYTES ABSOLUTE AUTO 0.44 K/mm3 (0.16-1.47); MONOCYTES PERCENT AUTO 8 % (4-13); Mean Corpuscular HGB 23.3 pg (26.0-34.0); Mean Corpuscular HGB Conc 29.4 g/dL (31.5-36.5); Mean Corpuscular Volume 79 fL (80-100); Mean Platelet Volume 9.5 fL (9.1-12.4); NEUTROPHILS ABSOLUTE AUTO 3.42 K/mm3 (1.96-9.15); NEUTROPHILS PERCENT AUTO 63 % (41-73); Platelet Count 204 K/mm3 (150-400); RDW Coefficient Variation 17.3 % (11.7-14.2); Red Blood Cell Count 3.39 M/mm3 (3.80-5.20); White Blood Cell Count 5.48 K/mm3 (4.00-11.30)
[2023-06-16 05:54] LABS: Bun/Creatinine Ratio 13.1 (12.0-20.0); Calcium, Blood 8.5 mg/dL (8.5-10.1); Creatinine, Blood 0.69 mg/dL (0.40-1.00); Potassium, Blood 3.6 mmol/L (3.5-5.5)
[2023-06-16 07:49] VITALS: BP 148/82
[2023-06-16 14:45] VITALS: BP 117/52
--- NOTE | 2023-06-16 17:21 | NUR ---
DISCHARGE NOTE PT DISCHARGED HOME, PICKED UP BY HER BROTHER. OXYGEN DELIVERED AND PT TOOK HOME. DISCHARGE INFORMATION AND EDUCATION PROVIDED.
== END 2023-06-16 18:12 | disposition home or self-care (01) | DRG 377 ==
LOC: ER 16:08 → MEDS 16:09 → ER 16:09 → MEDS 20:28 → ENPENDDIS 06-16 10:56 → MEDS 06-16 18:12
PROVIDERS: Emergency Medicine; Internal Medicine; Internal Medicine Gastroenterology; Student in an Organized Health Care Education/Training Program; ADMIT Internal Medicine
PROC: 0DJD8ZZ Inspection of Lower Intestinal Tract, Via Natural or Artificial Opening Endoscopic (ICD-10-PCS; principal; 2023-06-14 17:30)
PROC: 30233N1 Transfusion of Nonautologous Red Blood Cells into Peripheral Vein, Percutaneous Approach (ICD-10-PCS; 2023-06-15)
PROC: 0DJD8ZZ Inspection of Lower Intestinal Tract, Via Natural or Artificial Opening Endoscopic (ICD-10-PCS; 2023-06-15)
DX: K57.31 Diverticulosis of large intestine without perforation or abscess with bleeding (principal); J18.9 Pneumonia, unspecified organism; J96.01 Acute respiratory failure with hypoxia; D62 Acute posthemorrhagic anemia; Z68.43 Body mass index [BMI] 50.0-59.9, adult; K64.8 Other hemorrhoids; K21.9 Gastro-esophageal reflux disease without esophagitis; E55.9 Vitamin D deficiency, unspecified; K64.4 Residual hemorrhoidal skin tags; E66.01 Morbid (severe) obesity due to excess calories; E78.5 Hyperlipidemia, unspecified; M54.9 Dorsalgia, unspecified; G89.29 Other chronic pain; M70.70 Other bursitis of hip, unspecified hip; K44.9 Diaphragmatic hernia without obstruction or gangrene; I12.9 Hypertensive chronic kidney disease with stage 1 through stage 4 chronic kidney disease, or unspecified chronic kidney disease; N18.9 Chronic kidney disease, unspecified; E11.22 Type 2 diabetes mellitus with diabetic chronic kidney disease; E11.40 Type 2 diabetes mellitus with diabetic neuropathy, unspecified; D63.1 Anemia in chronic kidney disease; M19.90 Unspecified osteoarthritis, unspecified site; K21.00 Gastro-esophageal reflux disease with esophagitis, without bleeding; K76.0 Fatty (change of) liver, not elsewhere classified; D50.9 Iron deficiency anemia, unspecified; R91.1 Solitary pulmonary nodule; F41.8 Other specified anxiety disorders; Z79.84 Long term (current) use of oral hypoglycemic drugs; Z79.811 Long term (current) use of aromatase inhibitors; Z79.899 Other long term (current) drug therapy; Z79.891 Long term (current) use of opiate analgesic; Z90.710 Acquired absence of both cervix and uterus; Z98.890 Other specified postprocedural states; Z90.49 Acquired absence of other specified parts of digestive tract
CPT/HCPCS: 36415; 36430; 71045; 71046; 80048; 80053; 82947; 83880; 84484; 85014; 85018; 85025; 85027; 85610; 86850; 86900; 86901; 86923; 93005; 93010; 94760; 94761; 96374; 96375; 96376; 99285-25; A9270; C9113; G0008; G0378; J1815; J2405; J2704; J7040; J7120; P9016; Q2036

== ENCOUNTER 2023-07-27 16:44 | Emergency (ER) | payer MEDICARE ==
[~2023-07-27] VITALS: Ht 162.6 cm; Wt 129.3 kg
[2023-07-27 18:30] LABS: BASOPHILS ABSOLUTE AUTO 0.07 K/mm3 (0.00-0.23); BASOPHILS PERCENT AUTO 1 % (0-2); EOSINOPHILS ABSOLUTE AUTO 0.24 K/mm3 (0.00-0.68); EOSINOPHILS PERCENT AUTO 2 % (0-6); Hematocrit 31.6 % (33.0-51.0); Hemoglobin 8.9 g/dL (11.5-16.0); IMMATURE GRAN PERCENT AUTO 1 % (0-1); LYMPHOCYTES ABSOLUTE AUTO 2.04 K/mm3 (0.84-5.20); LYMPHOCYTES PERCENT AUTO 20 % (21-46); MONOCYTES PERCENT AUTO 8 % (4-13); Mean Corpuscular HGB 20.3 pg (26.0-34.0); Mean Corpuscular HGB Conc 28.2 g/dL (31.5-36.5); Mean Corpuscular Volume 72 fL (80-100); NEUTROPHILS ABSOLUTE AUTO 7.05 K/mm3 (1.96-9.15); NEUTROPHILS PERCENT AUTO 68 % (41-73); Platelet Count 297 K/mm3 (150-400); RDW Coefficient Variation 19.2 % (11.7-14.2); RDW Standard Deviation 49.1 fL (35.1-46.3); Red Blood Cell Count 4.38 M/mm3 (3.80-5.20)
[2023-07-27 18:54] LABS: Albumin, Blood 3.3 g/dL (3.4-5.0); Albumin/Globulin Ratio 0.8 (0.8-1.8); Bilirubin, Total 0.3 mg/dL (0.1-1.0); Bun/Creatinine Ratio 28.4 (12.0-20.0); Calcium, Blood 9.2 mg/dL (8.5-10.1); Creatinine, Blood 0.74 mg/dL (0.40-1.00); Potassium, Blood 4.3 mmol/L (3.5-5.5); Total Protein, Blood 7.3 g/dL (6.4-8.2)
[2023-07-27 23:18] LABS: Influenza A, PCR NEGATIVE (NEGATIVE); Influenza B, PCR NEGATIVE (NEGATIVE); Resp Syncytial Virus, PCR NEGATIVE (NEGATIVE); SARS-Cov-2 (COVID-19) PCR, MMC NEGATIVE (NEGATIVE)
[2023-07-27 23:50] VITALS: BP 173/84
== END 2023-07-27 23:58 | disposition home or self-care (01) ==
LOC: ER 16:44
PROVIDERS: Physician Assistant; Student in an Organized Health Care Education/Training Program
DX: R06.02 Shortness of breath (principal); R11.0 Nausea; I10 Essential (primary) hypertension; E11.9 Type 2 diabetes mellitus without complications; D64.9 Anemia, unspecified; Z79.84 Long term (current) use of oral hypoglycemic drugs; Z79.899 Other long term (current) drug therapy; M54.9 Dorsalgia, unspecified; R06.00 Dyspnea, unspecified; J44.9 Chronic obstructive pulmonary disease, unspecified; I25.10 Atherosclerotic heart disease of native coronary artery without angina pectoris
CPT/HCPCS: 0241U; 71046; 71260; 80053; 83880; 84484; 85025; 85379; 93005; 93010; 99285-25; A9270; Q9967

== ENCOUNTER 2023-08-24 14:03 | Emergency (ER) | payer MEDICARE ==
[~2023-08-24] VITALS: Ht 162.6 cm; Wt 130.6 kg
[2023-08-24] MEDS ORDERED: Ipratropium/Albuterol SulF 2.5-0.5MG/3 ML Amp INH PRN (14:10)
[2023-08-24 14:33] LABS: BASOPHILS ABSOLUTE AUTO 0.06 K/mm3 (0.00-0.23); BASOPHILS PERCENT AUTO 1 % (0-2); EOSINOPHILS ABSOLUTE AUTO 0.18 K/mm3 (0.00-0.68); EOSINOPHILS PERCENT AUTO 2 % (0-6); Hematocrit 32.5 % (33.0-51.0); Hemoglobin 8.9 g/dL (11.5-16.0); IMMATURE GRAN ABSOLUTE AUTO 0.06 K/mm3 (0.00-0.10); IMMATURE GRAN PERCENT AUTO 1 % (0-1); LYMPHOCYTES ABSOLUTE AUTO 1.23 K/mm3 (0.84-5.20); LYMPHOCYTES PERCENT AUTO 15 % (21-46); MONOCYTES ABSOLUTE AUTO 0.58 K/mm3 (0.16-1.47); MONOCYTES PERCENT AUTO 7 % (4-13); Mean Corpuscular HGB Conc 27.4 g/dL (31.5-36.5); Mean Corpuscular Volume 69 fL (80-100); Mean Platelet Volume 9.1 fL (9.1-12.4); NEUTROPHILS ABSOLUTE AUTO 6.26 K/mm3 (1.96-9.15); NEUTROPHILS PERCENT AUTO 75 % (41-73); Platelet Count 319 K/mm3 (150-400); RDW Coefficient Variation 19.9 % (11.7-14.2); RDW Standard Deviation 48.9 fL (35.1-46.3); Red Blood Cell Count 4.69 M/mm3 (3.80-5.20); White Blood Cell Count 8.37 K/mm3 (4.00-11.30)
[2023-08-24 15:01] LABS: Albumin, Blood 3.3 g/dL (3.4-5.0); Albumin/Globulin Ratio 0.8 (0.8-1.8); Bilirubin, Total 0.3 mg/dL (0.1-1.0); Bun/Creatinine Ratio 21.5 (12.0-20.0); Calcium, Blood 9.5 mg/dL (8.5-10.1); Creatinine, Blood 0.74 mg/dL (0.40-1.00); Globulin, Blood 4.2 g/dL (2.2-4.0); Potassium, Blood 4.4 mmol/L (3.5-5.5); Total Protein, Blood 7.5 g/dL (6.4-8.2)
[2023-08-24 16:29] LABS: Percent Saturation 3.1 % (15.0-50.0)
[2023-08-24] MEDS ORDERED: Ferrous Sulfat325 MG PO (17:29)
[2023-08-24] MEDS ORDERED: RX Prepack Albuterol 1 PREPACK/6.7 GM INH UD ONE (17:40)
[2023-08-24] MEDS ORDERED: ALBU90OI INH (17:40)
[2023-08-24] MEDS ORDERED: Furosemide 10 MG/ML 4ML Vial IV ONE (17:40)
[2023-08-24 18:30] VITALS: BP 165/97
== END 2023-08-24 18:36 | disposition home or self-care (01) ==
LOC: ER 14:03
PROVIDERS: Emergency Medicine
DX: D50.9 Iron deficiency anemia, unspecified (principal); I10 Essential (primary) hypertension; E11.9 Type 2 diabetes mellitus without complications; Z79.84 Long term (current) use of oral hypoglycemic drugs; Z79.899 Other long term (current) drug therapy
CPT/HCPCS: 71046; 80053; 82728; 83540; 83550; 83880; 84484; 85025; 93005; 93010; 94640; 94664; 96374; 99285-25; A9270; J1940

== ENCOUNTER → 2024-05-29 | Outpatient (CLI) | payer MEDICARE ==
[~2024-05-29] MED LIST changes: +Ferrous Sulfat325 MG PO
[2024-05-29 15:39] LABS: BASOPHILS ABSOLUTE AUTO 0.06 K/mm3 (0.00-0.23); BASOPHILS PERCENT AUTO 1 % (0-2); EOSINOPHILS ABSOLUTE AUTO 0.24 K/mm3 (0.00-0.68); EOSINOPHILS PERCENT AUTO 3 % (0-6); Hematocrit 45.3 % (33.0-51.0); Hemoglobin 14.1 g/dL (11.5-16.0); IMMATURE GRAN PERCENT AUTO 1 % (0-1); LYMPHOCYTES ABSOLUTE AUTO 1.83 K/mm3 (0.84-5.20); LYMPHOCYTES PERCENT AUTO 21 % (21-46); MONOCYTES ABSOLUTE AUTO 0.58 K/mm3 (0.16-1.47); MONOCYTES PERCENT AUTO 7 % (4-13); Mean Corpuscular HGB 27.6 pg (26.0-34.0); Mean Corpuscular HGB Conc 31.1 g/dL (31.5-36.5); Mean Corpuscular Volume 89 fL (80-100); Mean Platelet Volume 9.8 fL (9.1-12.4); NEUTROPHILS ABSOLUTE AUTO 6.02 K/mm3 (1.96-9.15); NEUTROPHILS PERCENT AUTO 68 % (41-73); Platelet Count 230 K/mm3 (150-400); RDW Coefficient Variation 14.3 % (11.7-14.2); RDW Standard Deviation 45.1 fL (35.1-46.3); Red Blood Cell Count 5.11 M/mm3 (3.80-5.20); White Blood Cell Count 8.83 K/mm3 (4.00-11.30)
[2024-05-29 15:56] LABS: Albumin, Blood 3.4 g/dL (3.4-5.0); Albumin/Globulin Ratio 0.9 (0.8-1.8); Bilirubin, Total 0.3 mg/dL (0.1-1.0); Bun/Creatinine Ratio 15.5 (12.0-20.0); Calcium, Blood 9.6 mg/dL (8.5-10.1); Creatinine, Blood 1.16 mg/dL (0.40-1.00); Globulin, Blood 3.8 g/dL (2.2-4.0); Potassium, Blood 4.6 mmol/L (3.5-5.5); Total Protein, Blood 7.2 g/dL (6.4-8.2)
== END ==
LOC: LAB 15:35 → LAB SHORT 15:35
PROVIDERS: Physician Assistant
DX: I48.92 Unspecified atrial flutter (principal)
CPT/HCPCS: 80053; 85025

== ENCOUNTER → 2025-03-10 | Outpatient (CLI) | payer MEDICARE ==
[2025-03-10 13:30] LABS: BASOPHILS ABSOLUTE AUTO 0.03 K/mm3 (0.00-0.23); BASOPHILS PERCENT AUTO 0 % (0-2); EOSINOPHILS ABSOLUTE AUTO 0.14 K/mm3 (0.00-0.68); EOSINOPHILS PERCENT AUTO 2 % (0-6); Hematocrit 43.4 % (33.0-51.0); Hemoglobin 13.9 g/dL (11.5-16.0); IMMATURE GRAN ABSOLUTE AUTO 0.06 K/mm3 (0.00-0.10); IMMATURE GRAN PERCENT AUTO 1 % (0-1); LYMPHOCYTES ABSOLUTE AUTO 0.99 K/mm3 (0.84-5.20); LYMPHOCYTES PERCENT AUTO 12 % (21-46); MONOCYTES ABSOLUTE AUTO 0.48 K/mm3 (0.16-1.47); MONOCYTES PERCENT AUTO 6 % (4-13); Mean Corpuscular HGB Conc 32.0 g/dL (31.5-36.5); Mean Corpuscular Volume 90 fL (80-100); NEUTROPHILS ABSOLUTE AUTO 6.55 K/mm3 (1.96-9.15); NEUTROPHILS PERCENT AUTO 79 % (41-73); NRBC ABSOLUTE 0.00 K/mm3 (0.00-0.02); NRBC Auto 0.0 /100 WBC (0.0-0.2); Platelet Count 206 K/mm3 (150-400); RDW Coefficient Variation 14.2 % (11.7-14.2); RDW Standard Deviation 47.0 fL (35.1-46.3)
== END | disposition home or self-care (01) ==
LOC: LAB SHORT 13:23 → LAB 13:23
PROVIDERS: Physician Assistant
DX: M79.672 Pain in left foot (principal)
CPT/HCPCS: 84550; 85025

== ENCOUNTER 2025-03-17 05:51 | Day surgery (SDC) | payer MEDICARE ==
[2025-03-17] VITALS (8 sets, daily range): BP systolic 137–166; BP diastolic 94–112
[2025-03-17] MEDS ORDERED: QUET100 PO (06:17)
[2025-03-17] MEDS ORDERED: ELIQUIS2.5 MG PO (06:18)
[2025-03-17] MEDS ORDERED: NS 1,000 ML IV ONE (06:37)
--- NOTE | 2025-03-17 07:03 | NUR ---
ASSUMED CARE FROM ANESTHESIA. PT AWAKE AND VERBALIZING WELL. SR 80 BPM POST CARDIOVERSION.
--- NOTE | 2025-03-17 07:57 | NUR ---
PT AND FAMILY VERBALIZED UNDERSTANDING OF WRITTEN AND VERBAL D/C INST. IV REMOVED. SR 80 BPM ON D/C.
[2025-03-17] MEDS ORDERED: Propofol 10mg/ml 20 ml Vial (Procedural) IV ONE (09:41)
== END 2025-03-17 23:36 | disposition home or self-care (01) ==
LOC: MHTC 05:51 → ORSCMMR 05:51 → MHTC 05:53 → ORSCMMR 07:00 → ORD 07:00 → MHTC 12:32 → ORSCMMR 23:36 → MHTC 23:36
DX: I48.92 Unspecified atrial flutter (principal); I48.91 Unspecified atrial fibrillation; Z79.01 Long term (current) use of anticoagulants
CPT/HCPCS: 92960; 93005; 93010; 93246; J2704; J7030

== ENCOUNTER 2025-07-12 12:49 | Emergency (ER) | payer MEDICARE ==
[~2025-07-12] VITALS: Ht 162.6 cm; Wt 132.9 kg
[~2025-07-12 12:49] MED LIST changes: +ELIQUIS2.5 MG PO; +QUET100 PO
[2025-07-12 13:59] LABS: BASOPHILS ABSOLUTE AUTO 0.05 K/mm3 (0.00-0.23); BASOPHILS PERCENT AUTO 1 % (0-2); EOSINOPHILS ABSOLUTE AUTO 0.15 K/mm3 (0.00-0.68); EOSINOPHILS PERCENT AUTO 1 % (0-6); Hematocrit 39.7 % (33.0-51.0); Hemoglobin 12.9 g/dL (11.5-16.0); IMMATURE GRAN ABSOLUTE AUTO 0.11 K/mm3 (0.00-0.10); IMMATURE GRAN PERCENT AUTO 1 % (0-1); LYMPHOCYTES ABSOLUTE AUTO 1.19 K/mm3 (0.84-5.20); LYMPHOCYTES PERCENT AUTO 11 % (21-46); MONOCYTES ABSOLUTE AUTO 0.65 K/mm3 (0.16-1.47); MONOCYTES PERCENT AUTO 6 % (4-13); Mean Corpuscular HGB Conc 32.5 g/dL (31.5-36.5); Mean Corpuscular Volume 92 fL (80-100); NEUTROPHILS ABSOLUTE AUTO 8.25 K/mm3 (1.96-9.15); NEUTROPHILS PERCENT AUTO 79 % (41-73); NRBC ABSOLUTE 0.00 K/mm3 (0.00-0.02); NRBC Auto 0.0 /100 WBC (0.0-0.2); Platelet Count 195 K/mm3 (150-400); RDW Coefficient Variation 13.6 % (11.7-14.2); RDW Standard Deviation 45.8 fL (35.1-46.3)
[2025-07-12] MEDS ORDERED: ACET500 PO (14:06)
[2025-07-12] MEDS ORDERED: Acerola C500 MG PO (14:06)
[2025-07-12] MEDS ORDERED: HYDROCODONE-AC1 EA19 PO (14:06)
[2025-07-12] MEDS ORDERED: DOCU100 PO (14:07)
[2025-07-12] MEDS ORDERED: B-12500 MC2 PO (14:08)
[2025-07-12] MEDS ORDERED: SERT100 PO (14:08)
[2025-07-12 14:22] LABS: Alanine Aminotransfer (ALT/SGP 15.0 U/L (12-78); Albumin, Blood 3.0 g/dL (3.4-5.0); Albumin/Globulin Ratio 0.9 (0.8-1.8); Anion Gap 8.0 mmol/L (3-11); Aspartate Aminotrans (AST/SGOT 9.0 U/L (12-37); Bilirubin, Total 0.4 mg/dL (0.1-1.0); Blood Urea Nitrogen 10.0 mg/dL (8-24); CO2, Blood 27.0 mmol/L (21-32); Calcium, Blood 9.1 mg/dL (8.5-10.1); Chloride, Blood 108.0 mmol/L (98-108); Creatinine, Blood 0.74 mg/dL (0.40-1.00); Globulin, Blood 3.4 g/dL (2.2-4.0); Glucose, Blood 117.0 mg/dL (70-99); Potassium, Blood 3.9 mmol/L (3.5-5.5); Sodium, Blood 139.0 mmol/L (136-145); Total Protein, Blood 6.4 g/dL (6.4-8.2)
[2025-07-12 16:30] VITALS: BP 179/108
== END 2025-07-12 17:01 | disposition home or self-care (01) ==
LOC: ER 12:49
PROVIDERS: Emergency Medicine
DX: I11.0 Hypertensive heart disease with heart failure (principal); I50.9 Heart failure, unspecified; M25.551 Pain in right hip; Z79.84 Long term (current) use of oral hypoglycemic drugs; Z79.899 Other long term (current) drug therapy; Z90.710 Acquired absence of both cervix and uterus
CPT/HCPCS: 71045; 73502; 80053; 84484; 85025; 93005; 93010; 96374; 99285-25; J1938